=== PATIENT | female | born 1995 ===

== ENCOUNTER 2020-05-15 23:21 | Outpatient (CLI) | payer SELFPAY ==
[2020-05-15 23:43] VITALS: BP 126/77
== END 2020-05-16 00:56 | disposition home or self-care (01) ==
LOC: TRG 23:21 → APU 23:26 → TRG 05-16 00:56
PROVIDERS: ATTEND Obstetrics & Gynecology
DX: O42.92 Full-term premature rupture of membranes, unspecified as to length of time between rupture and onset of labor (principal); Z3A.38 38 weeks gestation of pregnancy
CPT/HCPCS: 59025

== ENCOUNTER 2020-05-17 23:27 | Inpatient (IN) | payer OTHER ==
[2020-05-18] MEDS ORDERED: ACETAMINOPHEN 325 MG TAB PO PRN ×2 (00:18→01:06)
[2020-05-18] MEDS ORDERED: TERBUTALINE 1 MG/1 ML INJ SUB-Q PRN (00:18)
[2020-05-18] MEDS ORDERED: MINERAL OIL 30 ML ORAL LIQD PO PRN (00:18)
[2020-05-18] MEDS ORDERED: ePHEDrine SULFATE 50 MG/1 ML INJ IV PRN (00:18)
[2020-05-18] MEDS ORDERED: fentaNYL 100 MCG/2 ML INJ IV PRN (00:18)
[2020-05-18] MEDS ORDERED: LIDOCAINE (2%) 20 MG/1 ML VIAL 20 ML MDV INFILTRATI ONE (00:18)
[2020-05-18] MEDS ORDERED: AMPICILLIN/NS 2 GM/100 ML 2 GM/100 ML BAG IV ONE (00:18)
--- NOTE | 2020-05-18 00:24 | History and Physical Report ---
History of Present Illness Date of examination: 05/18/20 Date of admission: 05/18/2020 Chief complaint: Contractions History of present illness: 25 year old presents to L&D with contractions and advanced cervical dilation. Patient received care at [facility] and she brings records with her. LMP 08/29/19. EDC 05/24/2020. significant for the following: GBS positive. labs are as follows: O+, antibody screen negative, rubella immune, hepatitis B surface antigen negative, HIV negative, RPR nonreactive, gonorrhea negative, chlamydia negative, GBS positive, 1 hour sugar test 112, quad screen negative. 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 denies: smoking, alcohol abuse, prescription drug abuse, IV drug use - Obstetrical History Expected Date of Delivery: 05/24/20 Actual Gestation: 39 Week(s) 1 Day(s) : 5 Para: 3 Hx # Term Pregnancies: 3 Number of Pregnancies: 0 Spontaneous Abortions: 1 Induced : 0 Number of Living Children: 3 Medications and Allergies Allergies Allergy/AdvReac Type Severity Reaction Status Date / Time No Known Allergies Allergy Verified 11/06/15 04:13 Home Medications Medication Instructions Recorded Confirmed Last Taken Type Vitamin 1 tab PO DAILY 05/06/20 05/18/20 1 Day Ago History ~05/17/20 Review of Systems All systems: negative (contractions) - Vital Signs Vital signs: Vital Signs Pulse BP 74 141/84 05/17/20 23:53 05/17/20 23:53 Temp Pulse Resp BP Pulse Ox 98.5 F 91 H 19 134/88 99 05/18/20 00:03 05/18/20 00:17 05/18/20 00:03 05/18/20 00:10 05/18/20 00:17 - Physical Exam Abdomen: Positive: normal appearance, soft. Negative: distention, tenderness, guarding, rigidity Genitourinary (Female): Positive: normal external genitalia, normal perenium. Negative: perineal/vulvar lesions (no lesions noted on careful exam with bright light upon admission) Vagina: Positive: normal moisture Uterus: Positive: enlarged. Negative: tender Anus/Rectum: Positive: normal perianal skin Extremities: Positive: normal. Negative: tenderness, edema - Obstetrical FHR: category 1 Uterine Contraction Monitor Mode: External Cervical Dilatation: 9.5 Cervical Effacement Percentage: 100 station: 0 Uterine Contraction Pattern: Regular Uterine Contraction Intensity: Moderate Results Result Diagrams: 05/18/20 00:18 All other labs normal. Assessment and Plan A: at 39 1/7 weeks gestation. Active advanced labor. GBS positive. P: Admit. EFM. GBS prophylaxis. Expect .
[2020-05-18] MEDS: OXYTOCIN 20 UNIT/1000ML DRIP 20 UNITS/1,000 ML BAG IV SCH ×2 (00:52→01:42)
[2020-05-18 00:58] LABS: Hematocrit 39.2 % (30.3-42.9); Hemoglobin 13.4 gm/dl (10.1-14.3); Mean Corpuscular HGB Conc 34 % (30-34); Mean Corpuscular Volume 85 fl (79-97); Platelet Count 163 K/mm3 (140-440); Red Blood Count 4.59 M/mm3 (3.65-5.03); Red Cell Distribution Width 13.5 % (13.2-15.2)
[2020-05-18] MEDS ORDERED: LACTATED RINGERS 1,000 ML IV SCH (01:00)
[2020-05-18] MEDS ORDERED: LANOLIN/ZINC/DIMETHICONE (LANSINOH) 7 GM TP PRN (01:06)
[2020-05-18] MEDS ORDERED: MAGNESIUM HYDROXIDE (MOM) ORAL LIQD UDC PO PRN (01:06)
[2020-05-18] MEDS ORDERED: WITCH HAZEL/ GLYCERIN PAD TP PRN (01:06)
--- NOTE | 2020-05-18 01:14 | Procedure Note ---
OB Delivery Note - Delivery Date of Delivery: 05/18/20 Surgeon: KAYDEN PIERCE Estimated blood loss: other (250 cc) - Vaginal Delivery presentation: vertex Delivery position: OA Intrapartum events: meconium Delivery induction: none Delivery monitor: external FHT, external uterine Route of delivery: Delivery placenta: spontaneous Delivery cord: 3 umbilical vessels Episiotomy: none Delivery laceration: none Anesthesia: none Delivery comments: Precipitous spontaneous vaginal delivery at 00:49 of liveborn female infant weighing 3.005 kg over intact perineum with apgars of 8/9. Meconium stained amniotic fluid noted upon rupture of membranes at delivery. Tight nuchal and body/leg cord, manually reduced. Baby vigorous at , placed skin to skin with mom right away, cried immediately, dried with warm blankets and bulb suctioned. 3 vessel cord double clamped and cut. Cord blood obtained. Spontaneous delivery of intact placenta and membranes by mac mechanism. EBL 250 cc. Pitocin to IV fluids after delivery of placenta. Fundus firm and midline. No lacerations noted. Vaginal sweep negative. Sponge count correct. Mother and baby stable.
[2020-05-18] MEDS: IBUPROFEN 600 MG TAB PO SCH ×5 (01:42→23:50)
[2020-05-18] MEDS ORDERED: miSOPROStol 200 MCG TAB PR ONE (02:50)
[2020-05-18 20:30] LABS: Hematocrit 36.1 % (30.3-42.9); Hemoglobin 12.1 gm/dl (10.1-14.3)
[2020-05-19] MEDS: IBUPROFEN 600 MG TAB PO SCH ×2 (05:31→11:07)
--- NOTE | 2020-05-19 11:30 | Discharge Summary ---
Providers - Providers Date of Admission: 05/18/20 00:28 Date of discharge: 05/19/20 (1500) Attending physician: XOCHILT MONDRAGON JR, MD Primary care physician: XOCHILT MONDRAGON JR, MD Hospitalization Reason for admission: active labor Delivery: Episiotomy: none Laceration: none Other procedures: none complications: none Discharge diagnosis: IUP at term delivered baby: female Hospital course: See admission H & P; OB delivery summary and PP progress notes Condition at discharge: Good Disposition: DC-01 TO HOME OR SELFCARE - Discharge Diagnoses (1) Status post normal vaginal delivery Status: Acute Plan - Provider Discharge Summary Activity: routine, no sex for 6 weeks, no heavy lifting 4 weeks, no strenuous exercise Diet: routine Instructions: routine Additional instructions: [] Smoking cessation referral if applicable(refer to patient education folder for contact #) [] Refer to [facility]'s [facility] Booklet Call your doctor immediately for: * Fever > 100.5 * Heavy vaginal bleeding ( >1 pad per hour) * Severe persistent headache * Shortness of breath * Reddened, hot, painful area to leg or breast - Follow up plan Follow up: XOCHILT MONDRAGON JR, MD [Primary Care Provider] - 6 Weeks
[2020-05-19 14:20] VITALS: BP 122/75
== END 2020-05-19 14:45 | disposition home or self-care (01) | DRG 807 ==
LOC: TRG 23:27 → APU 23:30 → LD 05-18 00:28 → TRG 05-18 00:28 → OB 05-18 04:30
PROVIDERS: ADMIT Obstetrics & Gynecology; ATTEND Obstetrics & Gynecology
PROC: 10E0XZZ Delivery of Products of Conception, External Approach (ICD-10-PCS; principal; 2020-05-18)
DX: O62.3 Precipitate labor (principal); Z37.0 Single live birth; O77.0 Labor and delivery complicated by meconium in amniotic fluid; O99.824 Streptococcus B carrier state complicating childbirth; Z82.49 Family history of ischemic heart disease and other diseases of the circulatory system; Z3A.39 39 weeks gestation of pregnancy
CPT/HCPCS: 36415; 59025; 85014; 85018; 85027; 86850; 86900; 86901; G0378; J0290; J2590; J7120